=== PATIENT | female | born 1955 | race African-American/Black ===

== ENCOUNTER 2016-09-26 10:26 | Emergency (ER) | payer OTHER ==
[~2016-09-26] VITALS: Ht 172.7 cm; Wt 65.4 kg
[~2016-09-26 10:26] MED LIST: APIDRA SOL100 UNIT/1 SC; GLUCOPHAGE500 MG PO; KEFLEX500 MG PO; LANTUS 3 M100 UNITS1 SC; LIPITOR80 MG PO; LO-DOSE ASPIRIN81 M1 PO; LOPRESSOR50 MG PO; NAPROSYN500 MG PO; PLAVIX75 MG PO; PRINIVIL10 MG PO; TESSALON PERLE100 MG PO; VENTOLIN HFA18 GM IH; ZOFRAN4 MG PO
[2016-09-26 11:26] LABS: ADD MIUA? YES; BILIRUBIN NEGATIVE; BLOOD NEGATIVE; COLOR YELLOW ((YELLOW)); GLUCOSE (STRIP) >=500; KETONES NEGATIVE; LEUKOCYTES TRACE; NITRITE NEGATIVE; PROTEIN (STRIP) NEGATIVE; SPECIFIC GRAVITY 1.009 (1.000-1.030); UROBILINOGEN 0.2 MG/DL (0.2-1.0)
[2016-09-26 11:28] LABS: BACTERIA NONE SEEN /HPF; EPITHELIAL CELLS RARE /HPF; MUCUS TRACE /LPF; RED BLOOD CELLS 0-5 /HPF (0-5); UCUL ADDED? NO; WHITE BLOOD CELLS 0-5 /HPF (0-5)
[2016-09-26] MEDS ORDERED: ULTRAM50 MG PO (11:56)
[2016-09-26] MEDS ORDERED: ROBAXIN500 MG PO (11:56)
[2016-09-26 12:12] VITALS: BP 136/77
== END 2016-09-26 12:13 | disposition home or self-care (01) ==
LOC: EME 10:26
PROVIDERS: Physician Assistant
DX: S39.012A Strain of muscle, fascia and tendon of lower back, initial encounter (principal); M54.16 Radiculopathy, lumbar region; E11.9 Type 2 diabetes mellitus without complications; X50.0XXA Overexertion from strenuous movement or load, initial encounter; Y92.59 Other trade areas as the place of occurrence of the external cause; Y99.0 Civilian activity done for income or pay; Z79.4 Long term (current) use of insulin
CPT/HCPCS: 81003; 99281; 99284

== ENCOUNTER 2016-10-21 08:57 | Observation (INO) | payer OTHER ==
[~2016-10-21] VITALS: Ht 172.7 cm; Wt 65.8 kg
[~2016-10-21 08:57] MED LIST changes: +ROBAXIN500 MG PO; +ULTRAM50 MG PO
[2016-10-21 10:04] LABS: HEMATOCRIT 37.8 % (36.0-46.0); MCH 27.5 PG (29.0-34.0); MCHC 33.3 G/DL (30.0-36.0); MCV 82.5 FL (83-99); MEAN PLAT.VOLUME 9.9 uM^3 (9.5-12.4); NRBC (%) 0.4 /100 WBC (0-0); PLATELET COUNT 209 K/uL (156-360); RBC DIS.WIDTH-CV 11.9 % (11.8-14.6); RBC DIS.WIDTH-SD 35.5 % (39-53); RED BLOOD COUNT 4.58 M/uL (3.80-5.20); WHITE BLOOD COUNT 4.9 K/uL (4.1-10.2)
[2016-10-21 10:12] LABS: CHLORIDE 106 mEq/L (99-109); POTASSIUM 3.7 mEq/L (3.7-5.4); PROTHROMBIN TIME 10.6 (9.2-11.2); PTT 23.6 (25-32); SODIUM 142 mEq/L (136-147)
[2016-10-21 10:13] LABS: GLUCOSE 81 mg/dL (70-99)
[2016-10-21 10:15] LABS: ANION GAP 9 MEQ/L (2-14)
[2016-10-21 10:17] LABS: GFR ESTIMATE (CALCULATED) > 59 mL/min/
[2016-10-21 10:18] LABS: UREA NITROGEN (BUN) 20 mg/dL (9-23)
[2016-10-21 10:27] LABS: TROP-I INTERPRETATION NEGATIVE; TROPONIN-I < 0.01 ng/mL (0.0-0.30)
[2016-10-21] MEDS ORDERED: PRINIVIL5 MG PO (13:00)
[2016-10-21] MEDS ORDERED: METHOCARBAMOL500 MG PO (13:01)
[2016-10-21] MEDS ORDERED: NOVOLOG MI100 UNIT/M SC ×3 (13:02→13:56)
[2016-10-21 14:58] VITALS: BP 150/70
[2016-10-21 15:57] LABS: TROP-I INTERPRETATION NEGATIVE; TROPONIN-I < 0.01 ng/mL (0.0-0.30)
[2016-10-21 17:30] LABS: POINT-OF-CARE METER ID UU13113831
[2016-10-21 19:23] VITALS: BP 123/59
[2016-10-21 21:44] LABS: TROP-I INTERPRETATION NEGATIVE; TROPONIN-I < 0.01 ng/mL (0.0-0.30)
[2016-10-21 21:51] LABS: POINT-OF-CARE METER ID UU14162513
[2016-10-21 23:49] VITALS: BP 130/60
[2016-10-22 04:55] VITALS: BP 119/62
[2016-10-22 07:23] VITALS: BP 129/64
== END 2016-10-22 11:32 | disposition home or self-care (01) ==
LOC: EME 08:57 → EDOF 14:10 → 5WEST 14:10
PROVIDERS: Hospitalist; Nurse Practitioner Family; Student in an Organized Health Care Education/Training Program
DX: R07.89 Other chest pain (principal); R06.02 Shortness of breath; R20.0 Anesthesia of skin; I25.10 Atherosclerotic heart disease of native coronary artery without angina pectoris; Z95.5 Presence of coronary angioplasty implant and graft; E78.5 Hyperlipidemia, unspecified; I10 Essential (primary) hypertension; I25.2 Old myocardial infarction; E11.9 Type 2 diabetes mellitus without complications; J45.909 Unspecified asthma, uncomplicated
CPT/HCPCS: 71020; 80048; 82948; 84484; 85027; 85610; 85730; 93005; 94640; 99202; 99281; 99285; G0378; J1644; J1815; J2270; J2405

== ENCOUNTER 2017-01-29 12:54 | Emergency (ER) | payer SELFPAY ==
[~2017-01-29] VITALS: Ht 170.2 cm; Wt 65.2 kg
[~2017-01-29 12:54] MED LIST changes: +METHOCARBAMOL500 MG PO; +NOVOLOG MI100 UNIT/M SC; +PRINIVIL5 MG PO
[2017-01-29 13:11] VITALS: BP 116/91
[2017-01-29] MEDS ORDERED: ULTRACET1 TABLET PO (14:51)
== END 2017-01-29 15:09 | disposition home or self-care (01) ==
LOC: EME 12:54
DX: M17.12 Unilateral primary osteoarthritis, left knee (principal); M71.22 Synovial cyst of popliteal space [Baker], left knee; E11.9 Type 2 diabetes mellitus without complications; Z79.4 Long term (current) use of insulin; Z79.02 Long term (current) use of antithrombotics/antiplatelets; Z79.82 Long term (current) use of aspirin
CPT/HCPCS: 73564; 93971; 99281; 99283